=== PATIENT | female | born 2005 | race Caucasian/White ===

== ENCOUNTER 2023-09-25 21:18 | Emergency (ER) | payer OTHER, SELFPAY ==
[2023-09-25 21:28] VITALS: BP 109/63; PULSE 113; RESP 16; TEMP 37.1; O2SAT 97
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
[2023-09-25] MEDS: naproxen 500 mg Tablet PO (22:02)
[2023-09-25 22:08] VITALS: BP 101/76; PULSE 87; RESP 14; O2SAT 97
== END 2023-09-25 22:09 | disposition home or self-care (01) ==
PROVIDERS: Emergency Provider Emergency Medicine; PCP Nurse Practitioner Family
DX: S13.4XXA Sprain of ligaments of cervical spine, initial encounter (principal); V89.2XXA Person injured in unspecified motor-vehicle accident, traffic, initial encounter
CPT/HCPCS: 70450; 72125; 99284